=== PATIENT | female | born 1995 | race Caucasian/White ===

== ENCOUNTER 2023-10-21 21:50 | Emergency (ER) | payer OTHER, SELFPAY ==
[2023-10-21 21:54] VITALS: BP 124/82; PULSE 77; TEMP 36.7; O2SAT 99; BMI 31.6
--- NOTE | 2023-10-21 22:14 | ED_ITS ---
HPI - Skin/Abscess/Foreign Bdy General Chief complaint: Skin/Abscess/Foreign Body Stated complaint: LOWER EXTREMITY, RIGHT Time Seen by Provider: 10/21/23 22:12 Source: patient Mode of arrival: walk-in History of Present Illness HPI narrative: patient was working on her deck and mistakenly struck her right thigh with the [place] bar and sustained minor lac/cut to he right thigh. last tetanus 8 years ago. Bleeding has now stop. No other complaint Related Data Allergies Allergy/AdvReac Type Severity Reaction Status Date / Time shellfish derived Allergy Severe Rash Verified 10/21/23 21:59 sulfamethoxazole Allergy Severe Rash Verified 10/21/23 21:59 [From Bactrim] trimethoprim [From Bactrim] Allergy Severe Rash Verified 10/21/23 21:59 Review of Systems 2 ROS0 Status of ROS 10 or more systems reviewed and unremark able except as noted in history and below Exam Constitutional Vital Signs, click to edit/add: Last Vital Signs Temp 98.0 F 10/21/23 21:54 Pulse 77 10/21/23 21:54 Resp 14 10/21/23 21:54 BP 124/82 10/21/23 21:54 Pulse Ox 99 10/21/23 21:54 O2 Del Method Room Air 10/21/23 21:54 Common normals: no apparent distress, average body habitus, oriented x3, no limitations, healthy appearing, alert and well nourished [facility] Common normals: normocephalic and head/scalp atraumatic Eye Common normals: EOMs intact bilaterally and conjunctivae normal Respiratory Common normals: normal respiratory effort, no retractions, no use of accessory muscles and clear to auscultation bilaterally Cardio Common normals: regular rate, regular rhythm, S1 normal heart sound and S2 normal heart sound Extremity Extremity image (front): 2 1. minor 1.5cm superficial lac/cut right thigh. no bleeding Neuro Common normals: oriented x3, CN's II-XII intact bilaterally, moves all extremities, no focal motor deficits and no sensory deficits noted Psych Appearance: grossly normal Course Vital Signs Vital signs: Vital Signs Temperature 98.0 F 10/21/23 21:54 Pulse Rate 77 10/21/23 21:54 Respiratory Rate 14 10/21/23 21:54 Blood Pressure 124/82 10/21/23 21:54 Pulse Oximetry 99 07/13/24 21:54 Oxygen Delivery Method Room Air 10/21/23 21:54 Temperature 98.0 F 10/21/23 21:54 Pulse Rate 77 10/21/23 21:54 Respiratory Rate 14 10/21/23 21:54 Blood Pressure 124/82 10/21/23 21:54 Pulse Oximetry 99 10/21/23 21:54 Oxygen Delivery Method Room Air 10/21/23 21:54 MDM - Skin/Abscess/Foreign Bdy MDM Narrative Medical decision making narrative: presents with minor lac to her right thigh. Discussed options of treatment including first aid care, one stitch or glue. Patient preferred no stitch or glue. understands there may be more of a scar upon healing. Tetanus administered and patient discharged home Discharge Plan Discharge Stand Alone Forms: Portal Instructions Chief Complaint: Skin/Abscess/Foreign Body Clinical Impression: Laceration of right lower extremity Patient Disposition: Home, Self-Care Print Language: Amharic Instructions: Laceration Without Closure (ED) Additional Instructions: keep site clean. follow up with your doctor next week for recheck Referrals: Physician,Non-Staff, MD [Primary Care Provider] - 1 week
[2023-10-21] MEDS: ADACEL DIPH,PERTUSS(ACELL),TET VAC/PF 0.5 ML ADULT SYRINGE IM (22:56)
== END 2023-10-21 23:38 | disposition home or self-care (01) ==
PROVIDERS: Emergency Provider Internal Medicine
DX: S71.111A Laceration without foreign body, right thigh, initial encounter (principal); W22.8XXA Striking against or struck by other objects, initial encounter; Z23 Encounter for immunization
CPT/HCPCS: 90471; 90715; 99283

== ENCOUNTER 2024-01-10 05:51 | Emergency (ER) | payer OTHER, SELFPAY ==
[2024-01-10 05:54] VITALS: BP 147/90; PULSE 91; TEMP 36.8; O2SAT 100; BMI 32.3
--- NOTE | 2024-01-10 06:02 | ED.GENADUL1 ---
HPI HPI - General Adult General Chief complaint: Vaginal Bleeding Stated complaint: POSS MISCARIAGE Time Seen by Provider: 01/10/24 05:53 Source: patient Mode of arrival: walk-in Limitations: no limitations History of Present Illness HPI narrative: 28-year-old female to the emergency department chief complaint of vaginal bleeding. Patient believes she is 7-1/2 weeks . She has been undergoing IVF treatment in [place]. Patient reports that when she woke up this morning she had a small amount of bleeding. No cramping. No abdominal pain. She had an ultrasound in office last week and they were able to detect a heartbeat. Related Data Allergies Allergy/AdvReac Type Severity Reaction Status Date / Time shellfish derived Allergy Severe Rash Verified 01/10/24 05:59 sulfamethoxazole Allergy Severe Rash Verified 01/10/24 05:59 [From Bactrim] trimethoprim [From Bactrim] Allergy Severe Rash Verified 01/10/24 05:59 Opioid HPI Opioid Management Most Recent Opioid Data: No Data to Display Review of Systems ROS Status of ROS 10 or more systems reviewed and unremarkable except as noted in history and below Exam Narrative Exam Narrative: VITALS: I have reviewed the triage vital signs. GENERAL: Well developed, well appearing adult in no acute distress. NEURO: Alert and oriented. Moves all extremities. Face is symmetric and expressive. EYES: PERRL. No scleral icterus or conjunctival injection. No discharge. HENT: Normocephalic, atraumatic. Hearing is grossly intact. Nares grossly patent and without discharge. Mucous membranes moist. NECK: No JVD. Patient moves neck without restriction. CARDIO: Rhythm regular. Normal rate. No murmur, rub, or gallop. Pulses equal bilaterally in the upper and lower extremity. No lower extremity edema. PULM: Lungs clear to auscultation in all [place]. No wheezes, rales, or rhonchi. No conversational dyspnea. No splinting, stridor, or accessory muscle use. GI/: Abdomen is soft and non-tender. Normoactive bowel sounds. EXTREMITIES: Symmetric muscle bulk. No joint swelling. No clubbing, cyanosis, or deformity. SKIN: Warm and dry. Normal turgor. No rash or lesions appreciated. PSYCH: Mood, affect, and interaction is appropriate to the setting. Constitutional Vital Signs, click to edit/add: Last Vital Signs Temp 98.2 F 01/10/24 05:54 Pulse 91 H 01/10/24 05:54 Resp 18 01/10/24 05:54 BP 147/90 H 01/10/24 05:54 Pulse Ox 100 01/10/24 05:54 O2 Del Method Room Air 01/10/24 05:54 Course Vital Signs Vital signs: Vital Signs Temperature 98.2 F 01/10/24 05:54 Pulse Rate 91 H 01/10/24 05:54 Respiratory Rate 18 01/10/24 05:54 Blood Pressure 147/90 H 01/10/24 05:54 Pulse Oximetry 100 01/10/24 05:54 Oxygen Delivery Method Room Air 01/10/24 05:54 Temperature 98.2 F 01/10/24 05:54 Pulse Rate 91 H 01/10/24 05:54 Respiratory Rate 18 01/10/24 05:54 Blood Pressure 147/90 H 01/10/24 05:54 Pulse Oximetry 100 01/10/24 05:54 Oxygen Delivery Method Room Air 01/10/24 05:54 Medical Decision Making MDM Narrative Medical decision making narrative: 28-year-old female to the emergency department with chief complaint of spotting this morning. Vital stable, the patient is afebrile. Currently 7.5 weeks with an IVF . She has had previous ultrasound that is confirmed intrauterine . Will obtain basic labs, ultrasound. Care was signed out to Dr. Medina. Diagnosis: Vaginal bleeding affecting early Medical Records Medical records reviewed: Yes I reviewed the patient's medical records Lab Data Lab results reviewed: Yes I reviewed the patient's lab results Labs: Lab Results 01/10/24 01/10/24 Range/Units 06:10 06:35 WBC 9.1 (4.0-11.0) 10^3/uL RBC 4.13 L (4.20-5.40) 10^6/uL Hgb 11.8 L (12.0-16.0) g/dL Hct 34.8 L (36.0-48.0) % MCV 84.3 (81.0-99.0) fL MCH 28.6 (26.7-34.0) pg MCHC 33.9 (29.9-35.2) g/dL RDW 13.5 (11.0-15.0) % Plt Count 273 (150-450) 10^3/uL MPV 10.0 (9.5-13.5) fL Neut % (Auto) 53.0 (43.0-75.0) % Lymph % (Auto) 33.6 (20.5-60.0) % Alexander % (Auto) 7.3 (1.7-12.0) % Eos % (Auto) 5.0 (0.9-7.0) % Baso % (Auto) 0.9 (0.2-2.0) % Neut # (Auto) 4.8 (1.4-6.5) 10^3/uL Lymph # (Auto) 3.1 (1.2-3.8) 10^3/uL Alexander # (Auto) 0.7 (0.3-0.8) 10^3/uL Eos # (Auto) 0.5 (0.0-0.7) 10^3/uL Baso # (Auto) 0.1 (0.0-0.1) 10^3/uL Abs Immat Gran (auto) 0.02 (0.00-0.03) 10^3/uL Imm/Tot Granulo (auto) 0.2 (0.0-0.5) % Urine Color Lt. yellow (YELLOW) Urine Clarity Clear (CLEAR) Urine pH 6.0 (5.0-9.0) Ur Specific [place] 1.015 (1.005-1.025) Urine Protein Negative (NEG/TRACE) mg/dL Urine Glucose (UA) Negative (NEGATIVE) mg/dL Urine Ketones Negative (NEGATIVE) mg/dL Urine Occult Blood Large A (NEGATIVE) Urine Nitrite Negative (NEGATIVE) Urine Bilirubin Negative (NEGATIVE) Urine Urobilinogen 0.2 (0.2-1.0) EU/dL Ur Leukocyte Esterase Negative (NEGATIVE) Urine RBC 50-75 A (0-2) #/HPF Urine WBC None seen (NONE SEEN) #/HPF Ur Squamous Epith Cells Few A (NONE/RARE) #/LPF Urine Crystals None seen (None Seen) #/HPF Urine Bacteria Trace A (NONE SEEN) #/HPF Urine Casts None seen (NONE SEEN) #/LPF Urine Mucus None seen (NONE SEEN) Discharge Plan Discharge Patient Disposition: Still a Patient
[2024-01-10 06:22] LABS: Basophils Absolute Auto 0.1 10^3/uL (0.0-0.1); Basophils Percent Auto 0.9 % (0.2-2.0); Eosinophils Absolute Auto 0.5 10^3/uL (0.0-0.7); Hematocrit 34.8 % (36.0-48.0); Hemoglobin 11.8 g/dL (12.0-16.0); Immature Granulocytes Abs Auto 0.02 10^3/uL (0.00-0.03); Immature Granulocytes Pct Auto 0.2 % (0.0-0.5); Lymphocytes Absolute Auto 3.1 10^3/uL (1.2-3.8); Lymphocytes Percent Auto 33.6 % (20.5-60.0); Mean Corpuscular HGB Conc 33.9 g/dL (29.9-35.2); Mean Corpuscular Hemoglobin 28.6 pg (26.7-34.0); Mean Corpuscular Volume 84.3 fL (81.0-99.0); Monocytes Absolute Auto 0.7 10^3/uL (0.3-0.8); Monocytes Percent Auto 7.3 % (1.7-12.0); Neutrophils Absolute Auto 4.8 10^3/uL (1.4-6.5); Platelet Count 273 10^3/uL (150-450); Red Blood Count 4.13 10^6/uL (4.20-5.40); Red Cell Distribution Width 13.5 % (11.0-15.0); White Blood Count 9.1 10^3/uL (4.0-11.0)
[2024-01-10 06:38] LABS: Bilirubin Urine NEGATIVE (NEGATIVE); Blood Urine LARGE (NEGATIVE); Clarity Urine CLEAR (CLEAR); Color Urine LT. YELLOW (YELLOW); Glucose Urine UA NEGATIVE (NEGATIVE); Ketones Urine NEGATIVE (NEGATIVE); Leukocyte Esterase Urine NEGATIVE (NEGATIVE); Nitrite Urine NEGATIVE (NEGATIVE); Protein Urine NEGATIVE (NEG/TRACE); Specific Gravity Urine 1.015 (1.005-1.025); Urobilinogen Urine 0.2 EU/dL (0.2-1.0)
--- NOTE | 2024-01-10 06:41 | US_ITS ---
[address] [address] Patient Name: SONI JOHNSON MRN: [id number] date: 1995 Sex: F Assigned Patient Location: ER Current Patient Location: ER Accession/Order Number: [id number] Exam Date: 01/10/2024 07:00 Report Date: 01/10/2024 07:30 At the request of: JANESSA MCADAMS Procedure: US OB transvaginal EXAMINATION: US OB transvaginal HISTORY: Miscarriage COMPARISON: No relevant comparison available. FINDINGS: Transvaginal images Alvarado intrauterine gestation Gestational sac: 2.19 cm, 6 weeks 6 days CRL: 1.30 cm, 7 weeks 4 days Yolk sac: 8.1 mm Heart rate: 150 bpm Identified adjacent to the gestational sac is a crescent shaped hypoechoic 0.5 x 1.1 x 1.4 cm area Cervix: Closed, 4.5 cm The right ovary is normal measuring 2.8 x 1.6 x 2.7 cm. The left ovary is normal measuring 2.1 x 2.0 x 2.2 cm Clinical age: Unknown Ultrasound age: 7 weeks 4 days Ultrasound SILVIA: 08/24/2024 US/US OB transvaginal IMPRESSION: 1.4 cm subchorionic hematoma Viable alvarado intrauterine gestation measuring 7 weeks 4 days Electronically authenticated by: RICKY MANCUSO Date: 01/10/2024 07:30
[2024-01-10 06:48] LABS: Bacteria Urine TRACE #/HPF (NONE SEEN); Cast Seen? NONE SEEN #/LPF (NONE SEEN); Crystals Seen? None Seen #/HPF (None Seen); Mucus Urine NONE SEEN (NONE SEEN); RBC Urine 50-75 #/HPF (0-2); Squamous Epithelial Cell Urine FEW #/LPF (NONE/RARE); WBC Urine NONE SEEN #/HPF (NONE SEEN)
[2024-01-10 07:03] LABS: Anion Gap 15.2; BUN Creatinine Ratio 12.6; Calcium 9.4 mg/dL (8.5-10.1); Carbon Dioxide 21.4 mmol/L (21.0-32.0); Chloride 102 mmol/L (98-107); Estimated GFR (African America >60 (>=60 mL/min/1.73m^2); Estimated GFR (Non-African Ame >60 (>=60 mL/min/1.73m^2); Glucose 85 mg/dL (74-106); Potassium 3.6 mmol/L (3.5-5.1); Sodium 135 mmol/L (136-145)
[2024-01-10 07:12] LABS: HCG Quantitative 42076 mIU/mL
[2024-01-10 07:51] VITALS: BP 123/78
== END 2024-01-10 07:54 | disposition home or self-care (01) ==
PROVIDERS: Emergency Provider Student in an Organized Health Care Education/Training Program
DX: O20.8 Other hemorrhage in early pregnancy (principal); Z3A.01 Less than 8 weeks gestation of pregnancy
CPT/HCPCS: 36415; 76817; 80048; 81001; 84702; 85025; 86900; 86901; 99284